=== PATIENT | female | born 1980 | race Caucasian/White ===

== ENCOUNTER → 2017-11-02 11:21 | Outpatient (CLI) | payer OTHER, MEDICAID, SELFPAY ==
--- NOTE | 2017-11-02 11:51 | XR_ITS ---
XR chest 2V Ordering Physician: Shante White Patient Age: 37 years: Female HISTORY: ITS.REASON: VIRAL URI, COUGH . cough for 3 weeks. TECHNIQUE: PA and lateral chest COMPARISON :No previous studies available for comparison FINDINGS Suboptimal inspiration yields low lung volume on the lateral film . PA film is slightly better inspiration. Overlying breast density accentuate markings toward lung bases particularly right base. Upper normal markings are seen here at the right lung base, right lower lobe but no definitive pneumonia. On today's.Lateral view likely atelectasis toward lung bases accounts for the mild accentuation markings at lower lobe as well However if symptoms persist or progress consider follow-up. No CHF. No pleural effusion. Barbi and mediastinal structures are satisfactory with heart normal size. No rib lesion. T-spine intact. . . IMPRESSION. No definitive pneumonia. Upper normal markings towards RLL, I suspect related to the overlying breast density frontal projection, as well as less than optimal inspiration accentuates markings on today's lateral view . However if symptoms worsen & progress consider follow-up chest film to exclude a very early subtle interstitial infiltrate here here
== END ==
PROVIDERS: PCP Nurse Practitioner Family; Visit Provider Nurse Practitioner Family
DX: J06.9 Acute upper respiratory infection, unspecified (principal); R05 Cough
CPT/HCPCS: 71046

== ENCOUNTER 2022-06-30 10:59 | Observation (INO) | payer MEDICARE, MEDICAID, SELFPAY ==
[2022-06-30 11:14] VITALS: BMI 23.7
--- NOTE | 2022-06-30 11:25 | PC.NURSE ---
arrived to room by wheelchair from admissions
--- NOTE | 2022-06-30 11:28 | XR_ITS ---
PROCEDURE INFORMATION: Exam: XR Left Foot Exam date and time: 06/30/2022 11:46 AM Age: 41 years old Clinical indication: Cellulitis; Left; Patient HX: PT has brain injury and is paralyzed does not walk on foot- has a small scrape to her small toe; Additional info: Left foot cellulitis TECHNIQUE: Imaging protocol: Radiologic exam of the Left foot. Views: 3 or more views. COMPARISON: No relevant prior studies available. FINDINGS: Bones/joints: Acute appearing mildly displaced fracture at the base of the 5th proximal phalanx. No radiographic evidence of acute osteomyelitis. Moderate degenerative changes of the 1st MTP joint and 3rd and 4th PIP joints. Soft tissues: Normal. IMPRESSION: Acute appearing mildly displaced fracture at the base of the 5th proximal phalanx.
[2022-06-30 11:44] VITALS: BP 121/79; PULSE 70; RESP 20; TEMP 36.6; O2SAT 100
--- NOTE | 2022-06-30 12:00 | EXP.HP ---
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 While bathing in the hotel bathtub she cut her left foot in between the pinky and fourth toe on the bathtub stopper assembly and had quite a deep laceration with a lot of bleeding. She went to a hospital in [place]-the [facility] in [place], and was treated with sutures and Keflex was given. She initially did well, the sutures were dissolvable and have since dissolved but a couple of days after Keflex was discontinued mom was concerned about redness around the site of the area. In the office today she was found to have a 4 cm area of redness on the dorsum of the foot extending proximally from the wound which is now opened up again in the webbing between the fourth and fifth toe. Given failed outpatient therapy, her significant problems with movement and neurologic compromise of the foot, she is admitted to hospital for IV antibiotics and orthopedic consultation for evaluation. PFSH [facility] Social History Smoking Status: Never smoker alcohol intake: never current occupational status: unemployed and disabled Travel in the last 8 weeks: Inside the [place] Review of Systems Review of Systems Review of systems:: pertinent systems reviewed and negative unless documented below Meds Home Medications and Allergies New Prescriptions to Start Prescriptions: Exam Data for Last 24 hours Vital signs and Labs for Last 24 Hours: Temp Pulse Resp BP Pulse Ox 97.8 F 70 20 121/79 100 06/30/22 11:44 06/30/22 11:44 06/30/22 11:44 06/30/22 11:44 06/30/22 11:44 I & O for Last 24 hours: Intake & Output 06/28/22 06/29/22 06/30/22 07/01/22 11:59 11:59 11:59 10:59 Weight 175 lb 3 oz Constitutional Constitutional: no acute distress Comments: In wheelchair, communicative, smiles, significant physical and verbal compromise from her old traumatic brain injury. *Routine HEENT Exam Head: Present other (Previously noted deformity, unchanged) Eye: Present EOMI and PERRL ENT: Present mucous membranes moist *Routine Neck Exam Neck: Present supple; Absent lymphadenopathy *Routine Respiratory Exam Respiratory: Present CTA bilaterally *Routine Cardiovascular Exam Cardiovascular: Present RRR *Routine Abdominal Exam Abdominal: Present soft and normoactive bowel sounds; Absent tenderness *Routine Rectal Exam Rectal:: deferred *Routine Genitalia Exam Genitalia:: deferred *Routine Extremities Exam Extremities: Absent cyanosis, clubbing or edema Comments: Spasticity and hyperreflexia of left arm and leg as previously noted. Her left foot is swollen up to the ankle and there is a laceration in between the fourth and fifth toes of approximately 2 cm that has reopened from the initial wound repair per mom. There is a 5 to 6 cm area of heat, induration and redness in a circumferential pattern from this area up into the dorsum of the foot. Capillary refill is good, there is no purulence able to be expressed. *Routine Skin Exam Skin: Present warm; Absent rash *Routine Neurological Exam Neurological: Present alert and oriented X3 Comments: Pleasant and communicative.Previously noted hemiparesis and spasticity is unchanged from prior exams Assessment and Plan *Assessment and plan (1) Cellulitis of left foot: Status: Acute Category: Medical Code(s): L03.116 - Cellulitis of left lower limb (2) Left hemiparesis: Status: Acute Category: Medical Code(s): G81.94 - Hemiplegia, unspecified affecting left nondominant side Plan Given neuro compromise of the leg and her inability to sense pain in this leg I am concer
--- NOTE | 2022-06-30 12:16 | CT_ITS ---
PROCEDURE INFORMATION: Exam: CT Left Lower Extremity With Contrast, Foot Exam date and time: 06/30/2022 12:52 PM Age: 41 years old Clinical indication: Cellulitis; Toes; Left; Additional info: Cellulitis toes- 4th and 5th-- TECHNIQUE: Imaging protocol: CT of the Left lower extremity with intravenous contrast was performed. Exam focused on the foot. Radiation optimization: All CT scans at this facility use at least one of these dose optimization techniques: automated exposure control; mA and/or kV adjustment per patient size (includes targeted exams where dose is matched to clinical indication); or iterative reconstruction. Contrast material: ISOVUE; Contrast volume: 75 ml; Contrast route: IV; COMPARISON: CR XR FOOT LT MIN 3V 06/30/2022 11:46 AM FINDINGS: Bones/joints: Soft tissue swelling dorsal aspect of the metatarsals most pronounced along the lateral aspect of the mid and forefoot. Mild soft tissue edema lateral aspect of the ankle joint. No evidence of acute osseous injury. No evidence to suggest osteomyelitis. Focal region of sclerosis involving the lateral cuboid. Findings most compatible with a bone island. These in is the the the Soft tissues: See Bones/joints finding. Other findings: No discrete mass is demonstrated. IMPRESSION: 1. Regions of subcutaneous edema. Findings compatible with cellulitis. No evidence of abscess formation or findings to suggest osteomyelitis. 2. Recommendations if appropriate, follow-up with magnetic resonance imaging
[2022-06-30 13:34] LABS: Basophils % 0.4 % (0.1-2.0); Eosinophils # 0.2 K/mm3 (0.0-0.4); Eosinophils % 2.5 % (0.1-12.0); Hematocrit 40.3 % (37.0-47.0); Hemoglobin 12.2 g/dL (12.2-16.2); Lymphocytes # 1.7 K/mm3 (0.7-4.5); Lymphocytes % 19.9 % (10-50); Mean Corpuscular HGB Conc 30.3 g/dL (31.8-35.4); Mean Corpuscular Hemoglobin 27.1 pg (27.0-31.2); Mean Corpuscular Volume 89.5 fl (81-99); Mean Platelet Volume 9.3 fl (7.4-10.4); Monocytes # 0.4 K/mm3 (0.1-1.0); Monocytes % 5.3 % (1.7-9.3); Neutrophils # 6.1 K/mm3 (1.8-7.8); Neutrophils % 71.9 % (37.0-80.0); Platelet Count 251 K/mm3 (142-424); Red Blood Count 4.51 M/mm3 (4.20-5.40); Red Cell Distribution Width 13.2 % (11.5-17.5); White Blood Count 8.4 K/mm3 (4.8-10.8)
[2022-06-30 13:40] LABS: Chloride 100 mmol/L (98-107); Potassium 4.3 mmoL/L (3.5-5.1); Sodium 137 mmol/L (136-145)
[2022-06-30 13:42] LABS: Alanine Aminotransferase 24 U/L (12-78); Aspartate Amino Transferase 18 U/L (14-36); Blood Urea Nitrogen 13 mg/dl (7-17); Creatinine Clearance Estimated 116 mL/min (50-200); Estimated Glomerular Filt Rate 79 ml/min (>60); GFR (African American) 96 ML/MIN (>60)
[2022-06-30 13:43] LABS: Albumin Level 3.5 g/dl (3.5-5.0); Albumin/Globulin Ratio 1.4 (1.1-1.8); Alkaline Phosphatase 67 U/L (38-126); Anion Gap 13.3 mEq/L (5-15); Bilirubin,Total 0.7 mg/dl (0.2-1.3); Calcium 8.3 mg/dl (8.4-10.2); Carbon Dioxide 28 mmol/L (22.0-30.0); Globulin 2.5 g/dL (1.3-3.2); Glucose 55 mg/dl (74-100)
[2022-06-30 15:09] LABS: Coronavirus 19, PCR Not Detected (NotDetected); Influenza A, PCR Not Detected (NotDetected); Influenza B, PCR Not Detected (NotDetected)
[2022-06-30 16:00] VITALS: BP 125/75; PULSE 79; RESP 18; TEMP 36.6; O2SAT 99
--- NOTE | 2022-06-30 17:29 | EXP.ORTH.CON ---
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 While bathing in the hotel bathtub she cut her left foot in between the pinky and fourth toe on the bathtub stopper assembly and had quite a deep laceration with a lot of bleeding. She went to a hospital in [place]-the [facility] in [place], and was treated with sutures and Keflex was given. She initially did well, the sutures were dissolvable and have since dissolved but a couple of days after Keflex was discontinued mom was concerned about redness around the site of the area. In the office today she was found to have a 4 cm area of redness on the dorsum of the foot extending proximally from the wound which is now opened up again in the webbing between the fourth and fifth toe. Given failed outpatient therapy, her significant problems with movement and neurologic compromise of the foot, she is admitted to hospital for IV antibiotics and orthopedic consultation for evaluation. [facility] Medical History (Updated 06/30/22 @ 17:35 by Wilbert Oconnor JR, MD) History of gastroesophageal reflux (GERD) Left-sided weakness TBI (traumatic brain injury) Surgical History H/O release of tendon Family History (Updated 06/30/22 @ 12:16 by Briseida Ji RN) Other Family history of arthritis Family history of carpal tunnel syndrome Family history of hypertension Family history of myocardial infarction Nia's granulomatosis Social History (Updated 06/30/22 @ 12:06 by Kaz Adair MD) Smoking Status: Never smoker alcohol intake: never current occupational status: unemployed and disabled Travel in the last 8 weeks: Inside the [place] Review of Systems Review of Systems Review of systems:: unable to obtain Constitutional Constitutional: Reports system reviewed and no additional complaints, except as documented Eyes Eyes: Reports system reviewed and no additional complaints, except as documented ENT Ears, Nose, Mouth, and Throat: Reports system reviewed and no additional complaints, except as documented *Cardiovascular Cardiovascular: Reports system reviewed and no additional complaints, except as documented *Respiratory Respiratory: Reports system reviewed and no additional complaints, except as documented *Gastrointestinal Gastrointestinal: Reports system reviewed and no additional complaints, except as documented *Genitourinary Genitourinary: Reports system reviewed and no additional complaints, except as documented *Musculoskeletal Musculoskeletal: Reports arthralgias Integumentary/Breasts Skin/Breast: Reports system reviewed and no additional complaints, except as documented *Neurologic Neurologic: Reports system reviewed and no additional complaints, except as documented Psychiatric Psychiatric: Reports system reviewed and no additional complaints, except as documented Endocrine Endocrine: Reports system reviewed and no additional complaints, except as documented Hematologic/Lymphatic Hematologic/Lymphatic: Reports system reviewed and no additional complaints, except as documented Allergic/Immunologic Allergic/Immunologic: Reports system reviewed and no additional complaints, except as documented Meds Home Medications and Allergies Home Medications Medication Instructions Recorded Confirmed Type baclofen 10 mg tablet 10 mg PO DAILY muscle relaxer 06/30/22 06/30/22 History escitalopram oxalate 20 mg tablet 20 mg PO DAILY mood 06/30/22 06/30/22 History nitrofurantoin macrocrystal 100 mg 100 mg PO DAILY antibiotic 06/30/22 06/30/22 History capsule omeprazole 20 mg capsule,delayed 20 mg PO DAILY GERD 06/30/22 06/30/22 History release trihexyphenidyl 2 m
--- NOTE | 2022-06-30 18:56 | PC.NURSE ---
VSS. No acute changes. Less redness noted to LLE. Mom at bedside.
[2022-06-30 20:00] VITALS: BP 108/63; PULSE 75; RESP 16; TEMP 36.4; O2SAT 96
--- NOTE | 2022-07-01 01:43 | PC.NURSE ---
DRESSING CHANGED PER DR. GORDON AT THIS TIME.
--- NOTE | 2022-07-01 01:53 | EXP.ORTH.PN ---
Subjective *Date: 07/01/22 *Time: 01:53 Interval history: Minimal pain, she stood at bedside this evening and per her mother's report had no pain. Ortho Exam (Inpt) Vital signs and Labs for Last 24 Hours: Temp Pulse Resp BP Pulse Ox 97.6 F 75 16 108/63 L 96 06/30/22 20:00 06/30/22 20:00 06/30/22 20:00 06/30/22 20:00 06/30/22 20:00 Laboratory Results - last 24 hr 06/30/22 12:03: SARS-CoV-2 (PCR) Not detected, Influenza A Untype (PCR) Not detected, Influenza Type B (PCR) Not detected 06/30/22 13:26: WBC 8.4, RBC 4.51, Hgb 12.2, Hct 40.3, MCV 89.5, MCH 27.1, MCHC 30.3 L, RDW 13.2, Plt Count 251, MPV 9.3, Neut % (Auto) 71.9, Lymph % (Auto) 19.9, [place] % (Auto) 5.3, Eos % (Auto) 2.5, Baso % (Auto) 0.4, Neut # (Auto) 6.1, Lymph # (Auto) 1.7, [place] # (Auto) 0.4, Eos # (Auto) 0.2, Baso # (Auto) 0.0 06/30/22 13:26: Sodium 137, Potassium 4.3, Chloride 100, Carbon Dioxide 28, Anion Gap 13.3, BUN 13, Creatinine 0.80, Estimated Creat Clear 116, Estimated GFR 79, Est GFR ( Amer) 96, Glucose 55 L, Calcium 8.3 L, Total Bilirubin 0.7, AST 18, ALT 24, Alkaline Phosphatase 67, Total Protein 6.0 L, Albumin 3.5, Globulin 2.5, Albumin/Globulin Ratio 1.4 06/30/22 13:26: Lactate 1.0 I & O for Labs for Last 24 Hours: Intake & Output 06/28/22 06/29/22 06/30/22 07/01/22 23:59 23:59 23:59 22:59 Intake Total 360 / 360 Balance 360 / 360 Weight 175 lb 3 oz Head: Present normocephalic and atraumatic ENT: Present mucous membranes moist Neck: Present normal inspection Respiratory: Present normal respiratory effort and symmetric chest movement; Absent accessory muscle use or respiratory distress Cardiac: Present Reg Rate and Rhythm and radial pulses present GI: Present soft; Absent distention Rectal (female): Present deferred (female): Present deferred Additional Findings:: Left lower extremity: Laceration clean, scant serosanguineous drainage. Erythema now approximately 1 cm x 1 cm dorsally whereas it was 6 cm diameter upon presentation earlier yesterday. Assessment and Plan *Assessment and plan (1) Wound dehiscence: Status: Acute Category: Medical Code(s): T81.30XA - Disruption of wound, unspecified, initial encounter (2) Cellulitis of left foot: Status: Acute Category: Medical Code(s): L03.116 - Cellulitis of left lower limb (3) Left hemiparesis: Status: Acute Category: Medical Code(s): G81.94 - Hemiplegia, unspecified affecting left nondominant side Plan 41-year-old female with wound dehiscence, cellulitis following wound dehiscence of left fourth webspace laceration, status post primary repair in emergency department 11 days ago. Twice daily wet-to-dry dressing changes. Plan to continue empiric antibiotics. Plan for MRI Saturday.
[2022-07-01 04:00] VITALS: BP 122/68; PULSE 75; RESP 16; TEMP 36.9; O2SAT 96
[2022-07-01 05:06] VITALS: BMI 23.8
--- NOTE | 2022-07-01 05:12 | PC.NURSE ---
NO ACUTE CHANGES SINCE PREVIOUS ASSESSMENT. PT HAS RESTED WELL THIS SHIFT. LUNG SOUNDS CLEAR. PT HAD ONE EPISODE OF INCONTINENCE THIS SHIFT. NO C/O PAIN, N/V/D, OR SOB. PT'S MOTHER REMAINS AT BEDSIDE. VSS. DRESSING CHANGED THIS SHIFT BY DR. GORDON.
[2022-07-01 06:36] LABS: Basophils # 0.1 K/mm3 (0-0.2); Basophils % 0.7 % (0.1-2.0); Eosinophils # 0.2 K/mm3 (0.0-0.4); Eosinophils % 3.3 % (0.1-12.0); Hematocrit 40.3 % (37.0-47.0); Hemoglobin 12.5 g/dL (12.2-16.2); Lymphocytes # 1.8 K/mm3 (0.7-4.5); Lymphocytes % 25.5 % (10-50); Mean Corpuscular HGB Conc 31.1 g/dL (31.8-35.4); Mean Corpuscular Hemoglobin 27.5 pg (27.0-31.2); Mean Corpuscular Volume 88.5 fl (81-99); Mean Platelet Volume 9.1 fl (7.4-10.4); Monocytes # 0.4 K/mm3 (0.1-1.0); Monocytes % 5.8 % (1.7-9.3); Neutrophils # 4.6 K/mm3 (1.8-7.8); Neutrophils % 64.7 % (37.0-80.0); Platelet Count 236 K/mm3 (142-424); Red Blood Count 4.56 M/mm3 (4.20-5.40); Red Cell Distribution Width 13.2 % (11.5-17.5)
[2022-07-01 06:43] LABS: Alanine Aminotransferase 22 U/L (12-78); Albumin Level 3.5 g/dl (3.5-5.0); Albumin/Globulin Ratio 1.4 (1.1-1.8); Alkaline Phosphatase 86 U/L (38-126); Anion Gap 13.2 mEq/L (5-15); Aspartate Amino Transferase 19 U/L (14-36); Bilirubin,Total 0.3 mg/dl (0.2-1.3); Blood Urea Nitrogen 17 mg/dl (7-17); Calcium 8.5 mg/dl (8.4-10.2); Carbon Dioxide 26 mmol/L (22.0-30.0); Chloride 105 mmol/L (98-107); Creatinine Clearance Estimated 134 mL/min (50-200); Estimated Glomerular Filt Rate 92 ml/min (>60); GFR (African American) 112 ML/MIN (>60); Globulin 2.5 g/dL (1.3-3.2); Glucose 96 mg/dl (74-100); Potassium 4.2 mmoL/L (3.5-5.1); Sodium 140 mmol/L (136-145)
[2022-07-01 07:25] VITALS: BP 107/64; PULSE 73; RESP 16; TEMP 36.5; O2SAT 96
--- NOTE | 2022-07-01 08:49 | EXP.ACUTE.PN ---
Subjective *Date: 07/01/22 *Time: 08:49 Interval history: Overall patient feels better. She and her mom have no complaints. Orthopedic consultation reviewed and discussed case with orthopedic quality improvement consultant personally. Appreciate involvement. Reviewed labs, culture results and x-ray reports. Medical Exam Vital signs and Labs for Last 24 Hours: Vital Signs Temp Pulse Resp BP Pulse Ox 07/01/22 07:25 97.7 F 73 16 107/64 L 96 07/01/22 04:00 98.4 F 75 16 122/68 96 06/30/22 20:00 97.6 F 75 16 108/63 L 96 06/30/22 16:00 97.9 F 79 18 125/75 99 06/30/22 11:44 97.8 F 70 20 121/79 100 Intake and Output 06/30/22 07/01/22 07/01/22 20:59 03:59 11:59 Intake Total 180 / 540 Balance 180 / 540 Intake: Intake, Oral Amount 180 / 540 Other: Number of Unmeasured Voids Weight 176 lb 8 oz Patient Weight 07/01/22 10:59 Weight 176 lb 8 oz Laboratory Results - last 24 hr 06/30/22 12:03: SARS-CoV-2 (PCR) Not detected, Influenza A Untype (PCR) Not detected, Influenza Type B (PCR) Not detected 06/30/22 13:26: WBC 8.4, RBC 4.51, Hgb 12.2, Hct 40.3, MCV 89.5, MCH 27.1, MCHC 30.3 L, RDW 13.2, Plt Count 251, MPV 9.3, Neut % (Auto) 71.9, Lymph % (Auto) 19.9, [place] % (Auto) 5.3, Eos % (Auto) 2.5, Baso % (Auto) 0.4, Neut # (Auto) 6.1, Lymph # (Auto) 1.7, [place] # (Auto) 0.4, Eos # (Auto) 0.2, Baso # (Auto) 0.0 06/30/22 13:26: Sodium 137, Potassium 4.3, Chloride 100, Carbon Dioxide 28, Anion Gap 13.3, BUN 13, Creatinine 0.80, Estimated Creat Clear 116, Estimated GFR 79, Est GFR ( Amer) 96, Glucose 55 L, Calcium 8.3 L, Total Bilirubin 0.7, AST 18, ALT 24, Alkaline Phosphatase 67, Total Protein 6.0 L, Albumin 3.5, Globulin 2.5, Albumin/Globulin Ratio 1.4 06/30/22 13:26: Lactate 1.0 07/01/22 06:22: WBC 7.0, RBC 4.56, Hgb 12.5, Hct 40.3, MCV 88.5, MCH 27.5, MCHC 31.1 L, RDW 13.2, Plt Count 236, MPV 9.1, Neut % (Auto) 64.7, Lymph % (Auto) 25.5, [place] % (Auto) 5.8, Eos % (Auto) 3.3, Baso % (Auto) 0.7, Neut # (Auto) 4.6, Lymph # (Auto) 1.8, [place] # (Auto) 0.4, Eos # (Auto) 0.2, Baso # (Auto) 0.1 07/01/22 06:22: Sodium 140, Potassium 4.2, Chloride 105, Carbon Dioxide 26, Anion Gap 13.2, BUN 17 D, Creatinine 0.70, Estimated Creat Clear 134, Estimated GFR 92, Est GFR ( Amer) 112, Glucose 96 D, Calcium 8.5, Total Bilirubin 0.3, AST 19, ALT 22, Alkaline Phosphatase 86, Total Protein 6.0 L, Albumin 3.5, Globulin 2.5, Albumin/Globulin Ratio 1.4 I & O for Labs for Last 24 Hours: Intake & Output 06/28/22 06/29/22 06/30/22 07/01/22 11:59 11:59 11:59 10:59 Intake Total 540 / 540 Balance 540 / 540 Weight 175 lb 3 oz 176 lb 8 oz Comment:: Lorenza is alert, pleasant. Communicative this morning. No change in cardiopulmonary or neurologic exam. Her foot is wrapped with a wet to dry dressing. The redness underneath the dressing looks vastly improved with less intensity of the heat and the rubor. No drainage. Assessment and Plan *Assessment and plan (1) Wound dehiscence: Status: Acute Category: Medical Code(s): T81.30XA - Disruption of wound, unspecified, initial encounter (2) Cellulitis of left foot: Status: Acute Category: Medical Code(s): L03.116 - Cellulitis of left lower limb (3) Left hemiparesis: Status: Acute Category: Medical Code(s): G81.94 - Hemiplegia, unspecified affecting left nondominant side Plan Agree with orthopedic plan. Continue Unasyn. White counts not elevated. MRI of left foot tomorrow. If normal will discharge home with p.o. antibiotics. If abnormal will regroup with orthopedics.
--- NOTE | 2022-07-01 09:55 | HMH.PHAINT1 ---
Pharmacy Intervention Comments: MEDICATION RECONCILIATION COMPLETE USING EXTERNAL PHARMACY FILL HISTORY.
[2022-07-01 15:20] VITALS: BP 116/70; PULSE 74; RESP 16; TEMP 36.5; O2SAT 100
--- NOTE | 2022-07-01 18:14 | PC.NURSE ---
Removed x 2 more stitches from pt's wound to LLE and cleansed with saline prior to applying new dsg.
--- NOTE | 2022-07-01 19:33 | PC.NURSE ---
Have notified Dr. Adair of Meca gene detected in the prelim blood cx. NNO at this time.
[2022-07-01 20:00] VITALS: BP 116/59; PULSE 78; RESP 18; TEMP 36.5; O2SAT 98
[2022-07-02 04:00] VITALS: BP 121/69; PULSE 75; RESP 18; TEMP 36.6; O2SAT 94; BMI 24.4
--- NOTE | 2022-07-02 05:43 | PC.NURSE ---
NO ACUTE CHANGES SINCE PREVIOUS ASSESSMENT. PT HAS RESTED WELL THIS SHIFT. LUNG SOUNDS CLEAR. AMBULATED TO THE BATHROOM WITH HER MOTHER THIS SHIFT. DRESSING CHANGE AND WOUND CULTURE COMPLETED THIS SHIFT. VSS. NO C/O N/V/D. MOM AT BEDSIDE.
[2022-07-02 08:00] VITALS: BP 118/64; PULSE 74; RESP 18; TEMP 36.7; O2SAT 94
--- NOTE | 2022-07-02 08:17 | P.PN_ITS ---
Subjective *Date: 07/02/22 *Time: 08:17 Interval history: [place] well overnight, no fever, able to bear some weight on the left foot without wincing according to her mother. Minimal drainage. I reviewed blood culture positivity but it appears to be a commensal organism with staph epi. Note antibiotic changed today. MRI pending. Medical Exam Vital signs and Labs for Last 24 Hours: Vital Signs Temp Pulse Resp BP Pulse Ox 07/02/22 08:00 98.0 F 74 18 118/64 94 L 07/02/22 04:00 97.9 F 75 18 121/69 94 L 07/01/22 20:00 97.7 F 78 18 116/59 L 98 07/01/22 15:20 97.7 F 74 16 116/70 100 Intake and Output 07/01/22 07/02/22 07/02/22 19:59 03:59 11:59 Intake Total 360 / 360 Output Total 0 / 0 0 / 0 0 / 0 Balance 360 / 360 0 / 360 0 / 360 Intake: Intake, Oral Amount 360 / 360 Output: Output, Urine Amount 0 / 0 0 / 0 0 / 0 Other: Number of Unmeasured Voids 1 1 1 Weight 180 lb 3.2 oz Patient Weight 07/02/22 11:59 Weight 180 lb 3.2 oz I & O for Labs for Last 24 Hours: Intake & Output 06/29/22 06/30/22 07/01/22 07/02/22 12:59 12:59 11:59 11:59 Intake Total 360 / 360 Output Total 0 / 0 Balance 360 / 360 Weight 180 lb 3.2 oz Microbiology Reports for the Last 24 Hours: Microbiology 07/01/22 20:23 Foot,Left - Wound Gram Stain - Final 06/30/22 12:03 Blood Blood Culture - Preliminary Comment:: Alert, pleasant. Communicative. No change in cardiopulmonary neuro exam. Left foot in a bandage. No drainage. Minimal redness around the wound. Improved overall Assessment and Plan *Assessment and plan (1) Wound dehiscence: Status: Acute Category: Medical Code(s): T81.30XA - Disruption of wound, unspecified, initial encounter (2) Cellulitis of left foot: Status: Acute Category: Medical Code(s): L03.116 - Cellulitis of left lower limb (3) Left hemiparesis: Status: Acute Category: Medical Code(s): G81.94 - Hemiplegia, unspecified affecting left nondominant side Plan Agree with orthopedic plan. Continue Unasyn. White counts not elevated. MRI of left foot tomorrow. If normal will discharge home with p.o. antibiotics. If abnormal will regroup with orthopedics. No change in plan from plan outlined yesterday as above.
--- NOTE | 2022-07-02 08:23 | MR_ITS ---
FINAL REPORT TECHNIQUE: Multi planar MR imaging of the left foot was obtained with and without contrast. CLINICAL HISTORY: LEFT FOOT CELLULITIS, EVALUATE ABSCESS. SORE IN BETWEEEN 4TH AND 5TH TOE 2 WEEKS AGO. 16ML PROHANCE GIVEN. COMPARISON: CT performed earlier today. FINDINGS: There is moderate soft tissue edema about the ankle. The mortise is intact. Plantar fascia is intact. Abnormal marrow edema is seen of the distal 5th metatarsal with mild surrounding soft tissue edema. Postcontrast imaging demonstrates minimal fluid about the 5th MTP joint. IMPRESSION: Localized abnormal signal in the distal 5th metatarsal with minimal surrounding fluid at the 5th MTP joint concerning for osteomyelitis. Reviewed, Interpreted and Dictated by Micha Willams MD Transcribed by Rose Marie Avery Authenticated and . [facility]
--- NOTE | 2022-07-02 09:03 | EXP.ORTH.PN ---
Subjective *Date: 07/02/22 *Time: 09:20 Interval history: Ms. Gamino is a 41 year old female patient who sustained a laceration of her left foot fourth webspace while on a trip in [place], status post primary repair by an outside facility emergency department approximately 12 days ago who is admitted inpatient secondary to wound dehiscence and cellulitis. This morning the patient is sitting in a chair at the bedside and physical therapy is present for wound care/dressing change. She reports that she is having minimal pain and has been able to stand at the bedside and take a few steps per her mother's report. No history of any fevers, chills, or rigors. 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 She is scheduled to undergo MRI of the left foot today. The patient's mother reports that overall she feels as if the wound/foot is continuing to improve. They deny any other symptoms or concerns at this time. Ortho Exam (Inpt) Vital signs and Labs for Last 24 Hours: Temp Pulse Resp BP Pulse Ox 98.0 F 74 18 118/64 94 L 07/02/22 08:00 07/02/22 08:00 07/02/22 08:00 07/02/22 08:00 07/02/22 08:00 I & O for Labs for Last 24 Hours: Intake & Output 06/30/22 07/01/22 07/01/22 07/02/22 00:59 00:59 23:59 23:59 Intake Total Output Total 0 / 0 Balance 0 / 0 Weight 180 lb 3.2 oz Microbiology Reports for the Last 24 Hours: Microbiology 07/01/22 20:23 Foot,Left - Wound Gram Stain - Final 06/30/22 12:03 Blood Blood Culture - Preliminary Head: Present normocephalic and atraumatic Eyes: Present as per HPI ENT: Present normal exam Neck: Present normal inspection, full ROM and trachea midline; Absent lymphadenopathy Respiratory: Present normal respiratory effort, able to speak in complete sentences and symmetric chest movement; Absent accessory muscle use Cardiac: Present Reg Rate and Rhythm GI: Present soft; Absent tenderness Comment:: Upon examination of the left foot: Laceration in the fourth webspace clean with scant serosanguineous drainage. No bleeding or purulent drainage noted. Minimal erythema present dorsally. Some motor movement present in the left foot/toes; patient's motor function of the left lower extremity is limited at baseline secondary to left-sided hemiparesis. Posterior tibial pulse 1+; capillary refill is brisk. Sensation to light touch is grossly intact throughout. Skin: Present intact, warm and normal turgor; Absent cyanosis, erythema, lesions or jaundice Neuro: Present Cranial Nerve 2-12 Intact, Motor Function Intact, Sensory Function Intact, alert, awake, oriented x 3, tone normal and moves all extremities; Absent Numbness or Tingling Assessment and Plan *Assessment and plan (1) Wound dehiscence: Status: Acute Category: Medical Code(s): T81.30XA - Disruption of wound, unspecified, initial encounter (2) Cellulitis of left foot: Status: Acute Category: Medical Code(s): L03.116 - Cellulitis of left lower limb (3) Left hemiparesis: Status: Acute Category: Medical Code(s): G81.94 - Hemiplegia, unspecified affecting left nondominant side Plan I have discussed the clinical findings and progress with the patient and her mother. Her left fourth webspace laceration is clean and without evidence of purulent drainage or bleeding. Her erythema and cellulitis continue to improve. Plan to continue twice daily wet-to-dry dressing changes and empiric antibiotics. MRI scheduled for today to evaluate/rule out abscess or osteomyelitis. Will continue to follow while admitted. Continue medical management as per primary care team.
--- NOTE | 2022-07-02 09:17 | HMH.PTWOUND ---
Rehab Inpt Wound Evaluation Rehab IP Wound Evaluation Start: 07/02/22 09:13 Freq: ONCE Status: Active Protocol: Document 07/02/22 09:13 TIMPATTI (Rec: 07/02/22 09:17 [email or web address] [id number]) Rehab PT Wound Assessment Subjective Subjective pt's mother reports foot cut on bath drain Wound Left Distal Foot Wound Type Laceration Wound Length (cm) 1.4 Wound Width (cm) 0.2 Wound Depth (cm) 0.1 Wound Bed Appearance Beefy Red,Yellow Surrounding Tissue Appearance Mayo Wound Drainage Description Sanguineous Drainage Amount Small Drainage Odor No Odor Dressing Status Dry & Intact,Soiled Wound Topical Solution/Irrigant Saline Irrigant,Antibiotic Irrigant Packing Type Gauze Pads Primary Dressing Gauze Pad Wound Secondary Dressing Type Gauze Roll/Wrap Comment kerlix Wound Debridement Result Healthy Tissue Revealed Dressing Change Date 07/02/22 Dressing Change Patient Tolerance Tolerated Well Plan/Recommendation Comment Dressing to be changed daily - wound care to continue w/ follow - pt to be seen in outpatient wound care upon dc Eval Complexity Eval Charge Codes 16375 - Moderate Complexity G-codes PT Current Status Other PT/OT Status PT Current Status Modifier CN-At least 100% impaired, limited or restricted PT Goal Status Other PT/OT Status PT Goal Status Modifer CN-At least 100% impaired, limited or restricted PHYSICIAN CERTIFICATION: I certify the specified therapy services for Lorenza Gamino are required, authorized, and reviewed every 30 days.
[2022-07-02 16:00] VITALS: BP 138/84; PULSE 74; RESP 16; TEMP 36.5; O2SAT 96
--- NOTE | 2022-07-02 16:55 | PC.NURSE ---
Addendum entered by Gaby Barksdale RN 07/02/22 17:09: DRESSING TO THE LEFT FOOT CHANGED PER PHYSICAL THERAPY Original Note: PT HAS BEEN RESTING IN BED WITH FAMILY AT BEDSIDE. ALERT AND ORIENTED X4. PT ANSWERS QUESTIONS HOWEVER IS VERY SLOW TO RESPOND WHICH IS PT'S BASELINE. DRESSING WAS CHANGED TO THE RIGHT FOOT PER PHYSICAL THERAPY. REDNESS/LACERATION NOTED. PT WAS SITTING UP IN HER WHEELCHAIR FOR SEVERAL HOURS THIS SHIFT. LEFT SIDED WEAKNESS NOTED. PT IS GETTING AND MIDLINE INSERTED AT THIS TIME FOR CONTINUED IV ANTIBIOTICS. WILL CONTINUE TO MONITOR.
[2022-07-02 19:22] VITALS: BP 125/71; PULSE 70; RESP 16; TEMP 36.6; O2SAT 99
[2022-07-03 04:00] VITALS: BP 134/66; PULSE 79; RESP 17; TEMP 36.6; O2SAT 96
--- NOTE | 2022-07-03 04:34 | PC.NURSE ---
pt assisted to the bathroom with assistance X2 and wheelchair. dressing changed to left foot, tolerated well. no c/o pain this shift. family at bedside. CB in reach.
[2022-07-03 05:00] VITALS: BMI 24.4
[2022-07-03 06:02] LABS: Anion Gap 15.1 mEq/L (5-15); Blood Urea Nitrogen 13 mg/dl (7-17); Calcium 8.3 mg/dl (8.4-10.2); Carbon Dioxide 25 mmol/L (22.0-30.0); Chloride 104 mmol/L (98-107); Creatine Kinase 68 U/L (30-135); Creatinine Clearance Estimated 106 mL/min (50-200); Estimated Glomerular Filt Rate 69 ml/min (>60); GFR (African American) 83 ML/MIN (>60); Glucose 104 mg/dl (74-100); Potassium 4.1 mmoL/L (3.5-5.1); Sodium 140 mmol/L (136-145)
[2022-07-03 07:22] VITALS: BP 137/91; PULSE 79; RESP 17; TEMP 36.4; O2SAT 93
--- NOTE | 2022-07-03 08:04 | SW/DCPLANNER ---
Addendum entered by Denise Wells 07/03/22 15:02: [facility] Addendum entered by Denise Wells 07/03/22 15:00: [facility] has not made a decision about this patient. Patient's mother is agreeable for patient information to be faxed to [facility]. Jaymie rahman/ [facility] stated that patient information/order has been reviewed and services can start tomorrow for this patient. I will update Edelmira rahman/ [facility] and patient's mother. Addendum entered by Denise Wells 07/03/22 11:50: Patient information/order will also be faxed to [facility] for: home IV antibiotic, wound care and PT. Patient's mother is agreeable. Original Note: Patient will need two weeks of IV Dapto at discharge. I will fax patient information to [facility] this AM to send up home IV antibiotics. Patient will discharge later today.
--- NOTE | 2022-07-03 08:08 | EXP.DC.SUM ---
General Admission date:: 06/30/22 Discharge date: 07/03/22 HPI HPI HPI: 41-year-old white female status posttraumatic brain injury with residual left hemiparesis who was in [place] with her mother and a good friend attending a session of the [employer] a couple of weeks ago. While bathing in the hotel bathtub she cut her left foot in between the pinky and fourth toe on the bathtub stopper assembly and had quite a deep laceration with a lot of bleeding. She went to a hospital in [place] [place], and was treated with sutures and Keflex was given. She initially did well, the sutures were dissolvable and have since dissolved but a couple of days after Keflex was discontinued mom was concerned about redness around the site of the area. In the office today she was found to have a 4 cm area of redness on the dorsum of the foot extending proximally from the wound which is now opened up again in the webbing between the fourth and fifth toe. Given failed outpatient therapy, her significant problems with movement and neurologic compromise of the foot, she is admitted to hospital for IV antibiotics and orthopedic consultation for evaluation. Hospital Course Hospital Course Hospital Course: Patient was admitted, IV antibiotics were started because of the cellulitis that is failed outpatient therapy. Orthopedics was consulted, recommended imaging, and MRI of foot showed possible osteomyelitis in the left fifth metatarsal area. As a result was decided to subject patient to 2 weeks of IV antibiotics. We switched to daptomycin for once daily therapy and placed a midline yesterday. This was uncomplicated. The patient is doing well today. Plan will be to discharge home with daptomycin daily for 2 weeks. We will make follow-up with orthopedics on Saturday along with wound care. Wound care will be done at home by her mother and friends who are experience nursing staff. Exam Data for Last 24 hours Vital signs and Labs for Last 24 Hours: Temp Pulse Resp BP Pulse Ox 97.6 F 79 17 137/91 H 93 L 07/03/22 07:22 07/03/22 07:22 07/03/22 07:22 07/03/22 07:22 07/03/22 07:22 Laboratory Results - last 24 hr 07/03/22 05:25: Sodium 140, Potassium 4.1, Chloride 104, Carbon Dioxide 25, Anion Gap 15.1 H, BUN 13, Creatinine 0.90 D, Estimated Creat Clear 106, Estimated GFR 69, Est GFR ( Amer) 83 D, Glucose 104 H, Calcium 8.3 L, Total Creatine Kinase 68 I & O for Last 24 hours: Intake & Output 06/30/22 07/01/22 07/02/22 07/03/22 12:59 11:59 11:59 11:59 Intake Total 600 / 600 1080 / 1080 Output Total 0 / 0 500 / 500 Balance 600 / 600 580 / 580 Weight 180 lb 3.2 oz 180 lb 8 oz Microbiology Reports for the Last 24 Hours: Microbiology 07/01/22 20:23 Foot,Left - Wound Gram Stain - Final 07/01/22 20:23 Foot,Left - Wound Wound Culture - Preliminary NO GROWTH AFTER 24 HOURS 06/30/22 12:04 Blood Blood Culture - Preliminary NO GROWTH AFTER 48 HOURS 06/30/22 12:03 Blood Blood Culture - Preliminary Constitutional Constitutional: no acute distress *Routine HEENT Exam Head: Present normocephalic Eye: Present EOMI and PERRL ENT: Present mucous membranes moist *Routine Neck Exam Neck: Present supple; Absent lymphadenopathy *Routine Respiratory Exam Respiratory: Present CTA bilaterally *Routine Cardiovascular Exam Cardiovascular: Present RRR *Routine Abdominal Exam Abdominal: Present soft and normoactive bowel sounds; Absent tenderness *Routine Extremities Exam Extremities: Present clubbing and edema; Absent cyanosis Comments: Midline catheter in the right antecubital fossa *Routine Skin Exam Skin: Present warm; Absent rash *Routine Neurological Exam Neurological: Present alert and oriented X3 Comments: Previously noted left hemiparesis is unchanged. Results Data Completed and Pending Labs on day of discharge: Johanna
--- NOTE | 2022-07-03 09:25 | HMH.PHAINT1 ---
Pharmacy Intervention Comments: Discharge counseling completed at bedside with patient and caregiver. Discussed continuation of home medications and new home medication (daptomycin) to be administered IV every 24 hours. Caregiver has no concerns related to the medication. Explained indication of medication (cellulitis) and possible side effects of medication including GI upset, headache, etc. Caregiver verbalized understanding and wanted to make sure it was okay if the antibiotic was not given at the same time every single day due to patient appointment conflicts. Explained that as long as the patient receives daptomycin once daily, variation in administration by a couple hours is okay. Instructed to contact pharmacy with any further questions.
--- NOTE | 2022-07-03 10:15 | EXP.ORTH.PN ---
Subjective *Date: 07/03/22 *Time: 10:38 Interval history: Ms. Gamino is a 41 year old female patient who sustained a laceration of her left foot fourth webspace while on a trip in [place], status post primary repair by an outside facility emergency department approximately 13 days ago who is admitted inpatient secondary to wound dehiscence and cellulitis. This morning the patient is sitting in a chair at the bedside and her mother is present. She reports continued improvement in her pain. No history of any fevers, chills, or rigors. She denies any other symptoms or concerns at this time. Ortho Exam (Inpt) Vital signs and Labs for Last 24 Hours: Temp Pulse Resp BP Pulse Ox 97.6 F 79 17 137/91 H 93 L 07/03/22 07:22 07/03/22 07:22 07/03/22 07:22 07/03/22 07:22 07/03/22 07:22 Laboratory Results - last 24 hr 07/03/22 05:25: Sodium 140, Potassium 4.1, Chloride 104, Carbon Dioxide 25, Anion Gap 15.1 H, BUN 13, Creatinine 0.90 D, Estimated Creat Clear 106, Estimated GFR 69, Est GFR ( Amer) 83 D, Glucose 104 H, Calcium 8.3 L, Total Creatine Kinase 68 I & O for Labs for Last 24 Hours: Intake & Output 07/01/22 07/01/22 07/02/22 07/03/22 00:59 23:59 23:59 23:59 Intake Total 960 / 960 360 / 360 Output Total 500 / 500 0 / 0 Balance 460 / 460 360 / 360 Weight 180 lb 3.2 oz 180 lb 8 oz Microbiology Reports for the Last 24 Hours: Microbiology 07/01/22 20:23 Foot,Left - Wound Gram Stain - Final 07/01/22 20:23 Foot,Left - Wound Wound Culture - Preliminary Gram Positive Cocci 06/30/22 12:03 Blood Blood Culture - Final Staphylococcus epidermidis 06/30/22 12:04 Blood Blood Culture - Preliminary NO GROWTH AFTER 48 HOURS Head: Present normocephalic and atraumatic Eyes: Present as per HPI ENT: Present normal exam Neck: Present normal inspection, full ROM and trachea midline; Absent lymphadenopathy Respiratory: Present normal respiratory effort, able to speak in complete sentences and symmetric chest movement; Absent accessory muscle use Cardiac: Present Reg Rate and Rhythm GI: Present soft; Absent tenderness Comment:: Upon examination of the left foot: Dressings present over the left foot are clean, dry, and intact. No evidence of drainage or bleeding noted. Some motor movement present in the left foot/toes; patient's motor function of the left lower extremity is limited at baseline secondary to left-sided hemiparesis. Posterior tibial pulse 1+; capillary refill is brisk. Sensation to light touch is grossly intact throughout. Diagnostic imaging: MRI of the left foot performed at [facility] on 07/02/2022 reviewed along with radiologist report and compared to previous imaging. MRI of the left foot/ankle demonstrates localized edema in the distal fifth metatarsal. Radiologist report is as follows: FINDINGS: There is moderate soft tissue edema about the ankle. The mortise is intact. Plantar fascia is intact. Abnormal marrow edema is seen of the distal 5th metatarsal with mild surrounding soft tissue edema. Postcontrast imaging demonstrates minimal fluid about the 5th MTP joint. IMPRESSION: Localized abnormal signal in the distal 5th metatarsal with minimal surrounding fluid at the 5th MTP joint concerning for osteomyelitis. Reviewed, Interpreted and Dictated by Micha Willams MD Transcribed by Rose Marie Avery Authenticated and . [facility] Skin: Present intact, warm and normal turgor; Absent cyanosis, erythema, lesions or jaundice Neuro: Present Cranial Nerve 2-12 Intact, Motor Function Intact, Sensory Function Intact, alert, awake, oriented x 3, tone normal and moves all extremities; Absent Numbness or Tingling Assessment and Plan *Assessment and plan (1) Wound dehiscence: Status: Acute Categ
--- NOTE | 2022-07-04 12:24 | CARE MANAGER ---
Contacted patient's mother related to hospital discharge. She states home health is supposed to come today. Denies any questions or concerns. SANDOR Feldman
== END 2022-07-03 15:11 | disposition home health service (06) ==
PROVIDERS: Admitting Provider Internal Medicine Adolescent Medicine; PCP Internal Medicine Adolescent Medicine; Visit Provider Internal Medicine Adolescent Medicine
DX: T81.33XA Disruption of traumatic injury wound repair, initial encounter (principal); M86.172 Other acute osteomyelitis, left ankle and foot; G81.94 Hemiplegia, unspecified affecting left nondominant side; L03.116 Cellulitis of left lower limb; Z20.822 Contact with and (suspected) exposure to COVID-19; B95.62 Methicillin resistant Staphylococcus aureus infection as the cause of diseases classified elsewhere; Z87.820 Personal history of traumatic brain injury
CPT/HCPCS: G0378; G0379; 36410; 36415; 73630; 73701; 73720; 80048; 80053; 82550; 83605; 85025; 87040; 87070; 87077; 87186; 87205; A9576; C9803; J0878; Q9967; U0003; U0005

== ENCOUNTER 2022-09-18 09:35 | Day surgery (SDC) | payer MEDICARE, MEDICAID, SELFPAY ==
[2022-09-18] VITALS (9 sets, daily range): BP systolic 113–152; BP diastolic 60–97; PULSE 71–84; RESP 15–18; TEMP 36.2–43; O2SAT 95–100; BMI 24.4
[2022-09-18 10:27] LABS: Basophils % 0.3 % (0.1-2.0); Eosinophils # 0.1 K/mm3 (0.0-0.4); Eosinophils % 1.6 % (0.1-12.0); Hematocrit 40.2 % (37.0-47.0); Hemoglobin 12.9 g/dL (12.2-16.2); Lymphocytes # 1.5 K/mm3 (0.7-4.5); Lymphocytes % 17.9 % (10-50); Mean Corpuscular HGB Conc 32.1 g/dL (31.8-35.4); Mean Corpuscular Hemoglobin 27.3 pg (27.0-31.2); Mean Corpuscular Volume 85.2 fl (81-99); Mean Platelet Volume 9.4 fl (7.4-10.4); Monocytes # 0.4 K/mm3 (0.1-1.0); Monocytes % 4.9 % (1.7-9.3); Neutrophils # 6.1 K/mm3 (1.8-7.8); Neutrophils % 75.3 % (37.0-80.0); Platelet Count 275 K/mm3 (142-424); Red Blood Count 4.72 M/mm3 (4.20-5.40); Red Cell Distribution Width 13.9 % (11.5-17.5); White Blood Count 8.1 K/mm3 (4.8-10.8)
[2022-09-18 10:42] LABS: Anion Gap 12.4 mEq/L (5-15); Blood Urea Nitrogen 11 mg/dl (7-17); Calcium 8.2 mg/dl (8.4-10.2); Carbon Dioxide 23 mmol/L (22.0-30.0); Chloride 110 mmol/L (98-107); Estimated Glomerular Filt Rate 79 ml/min (>60); GFR (African American) 95 ML/MIN (>60); Glucose 92 mg/dl (74-100); Potassium 4.4 mmoL/L (3.5-5.1); Sodium 141 mmol/L (136-145)
[2022-09-18 12:15] LABS: Urine Pregnancy, HCG Qual. Negative (Negative)
--- NOTE | 2022-09-18 12:21 | P.PN_ITS ---
[facility] Disclaimer: The information contained in this section may have been updated after the patient was seen, as this information can be updated by other users. Medical History History of gastroesophageal reflux (GERD) Left-sided weakness TBI (traumatic brain injury) Surgical History H/O release of tendon Family History Other Family history of arthritis Family history of carpal tunnel syndrome Family history of hypertension Family history of myocardial infarction Nia's granulomatosis Social History (Updated 09/18/22 @ 11:49 by Fani Proctor RN) Smoking Status: Never smoker alcohol intake: never substance use type: denies use current occupational status: unemployed and disabled Travel in the last 8 weeks: Inside the [place] household members: family housing: house lives independently: No marital status: single education level: college caffeine: Yes special andres needs: No agree to transfusion: No do you feel safe at home: Yes victim of physical abuse: No victim of emotional abuse: No victim of sexual abuse: No would you like helpful sources: No [facility] Anesthesia Checklist Patient Identification Patient Identification: Arm Band and Family Structural Data Admitted From: Home Planned Operative Procedure/s: I&D Left Buttock Consent for Planned Operative Procedure(s) Verified: Yes Verified Documents: Surgical Consent and History and Physical NPO Status Verified Time NPO: 00:00 Additional verifications Anesthesia Reactions: No Hx Blood Transfusions: No Blood Transfusion Reaction: No Airway Assessment C-Spine Mobility Assessed: Yes TMJ Mobility Assessed: Yes Dentition: Good Dentition Neurological Assessment Level of Consciousness: Awake and Appropriate Anesthesia Plan Anesthesia Risk discussed: Yes Anesthesia Plan: Verified ASA Class: III Anesthesia Type: General
--- NOTE | 2022-09-18 14:36 | EXP.ANES.I ---
[facility] Anesthesia Record Part I Anesthesia Record I Intake, IV Amount: 100 Estimated blood loss (mL): 5 Urine output (mL): 0 Blood Products used (#): none Blood Pressure: 151/97 SaO2: 95 Pulse Rate: 79 Respiratory Rate: 18 Temperature: 97.2 F Patient is:: Drowsy and Stable Stable to PACU at:: 14:24
--- NOTE | 2022-09-18 14:53 | EXP.OP.NOTE ---
Date of procedure: 09/18/22 Pre-op Diagnosis:: Left gluteal abscess Post-op Diagnosis:: Same Procedure performed:: Incision and drainage left gluteal abscess Surgeon:: Todd Gaines MD WEB APPLICATIONS ADMINISTRATOR:: Other Anesthesia: LMA Estimated blood loss (mL): 15 Operative findings:: Most consistent with carbuncle Operative note:: Consent was obtained. Patient was taken the operating room. Anesthesia was induced via LMA. She was positioned and right lateral position. The area was prepped and draped in the standard surgical fashion. Limited incision was made centrally. There was thick and infected tissue. Deep abscess pocket was encountered and there was some purulent debris which was evacuated. The incision was extended somewhat as a cruciate type incision. Wound was probed aggressively to break up any loculations. Cultures were sent. There was some significant residual tissue swelling but no evidence of any purulence or necrosis remaining. Wound was thoroughly irrigated. Hemostasis was achieved with electrocautery. Local anesthetic was infiltrated. Wound was packed with portion of 4 x 4 and covered with clean dry sterile dressing. Condition: stable Disposition: PACU Complications:: None immediately apparent
--- NOTE | 2022-09-19 14:11 | P.PNANES_ITS ---
[facility] Anesthesia Record Part II Anesthesia Record Part II Discharge Time: 14:54 Destination: Surgical Day Care (OP Surgery) PACU nurse assessment reviewed?: Yes Patient Condition:: Good Anesthesia Complications:: None Swallowing reflex intact?: Yes Cyanosis?: No Blood Pressure: 127/91 Pulse Rate: 81 Temperature: 97.6 F Mental Status: Alert & Oriented Pain level:: 0 Nausea and/or vomitting:: None Intake, IV Amount: 0
[2022-09-19 14:12] VITALS: BP 127/91; PULSE 81; TEMP 36.4
== END 2022-09-18 15:25 | disposition home or self-care (01) ==
PROVIDERS: PCP Internal Medicine Adolescent Medicine; Visit Provider Surgery
DX: L02.31 Cutaneous abscess of buttock (principal); L03.116 Cellulitis of left lower limb; Z79.899 Other long term (current) drug therapy; Z87.820 Personal history of traumatic brain injury; G81.94 Hemiplegia, unspecified affecting left nondominant side
CPT/HCPCS: 10061; 36415; 80048; 81025; 85025; 87070; 87077; 87186; 87205; 96374

== ENCOUNTER 2024-06-20 10:57 | Outpatient (CLI) | payer MEDICARE, MEDICAID, SELFPAY ==
[2024-06-20 11:43] LABS: Albumin Level 3.8 g/dl (3.5-5.0); Chloride 110 mmol/L (98-107); Potassium 4.9 mmoL/L (3.5-5.1); Sodium 139 mmol/L (136-145)
[2024-06-20 11:45] LABS: Blood Urea Nitrogen 12 mg/dl (7-17); Estimated Glomerular Filt Rate 78 ml/min (>60); GFR (African American) 95 ML/MIN (>60)
[2024-06-20 11:46] LABS: Alanine Aminotransferase 18 U/L (12-78); Albumin/Globulin Ratio 1.5 (1.1-1.8); Alkaline Phosphatase 53 U/L (38-126); Anion Gap 7.9 mEq/L (5-15); Aspartate Amino Transferase 18 U/L (14-36); Bilirubin,Total 0.8 mg/dl (0.2-1.3); Calcium 8.4 mg/dl (8.4-10.2); Carbon Dioxide 26 mmol/L (22.0-30.0); Chol/HDL Ratio 3.3 (1-3.5); Cholesterol 147 mg/dl (140-200); Globulin 2.5 g/dL (1.3-3.2); Glucose 96 mg/dl (74-100); HDL Cholesterol 45 mg/dl (40-60); Total Protein,Serum 6.3 g/dl (6.3-8.2); Triglycerides 61 mg/dl (30-150); VLDL Cholesterol 12 mg/dL (0-40)
[2024-06-20 11:57] LABS: Direct LDL Cholesterol 86.03 mg/dL (100-129)
== END 2024-06-20 23:59 | disposition home or self-care (01) ==
LOC: LAB 10:59
PROVIDERS: PCP Nurse Practitioner Family; Visit Provider Nurse Practitioner Family
DX: Z00.00 Encounter for general adult medical examination without abnormal findings (principal)
CPT/HCPCS: 36415; 80053; 80061